=== PATIENT | female | born 1990 | race Caucasian/White ===

== ENCOUNTER 2021-01-30 16:36 | Inpatient (IN) ==
[2021-01-30] MEDS ORDERED: METOCLOPRAMIDE HCL 10 MG TABLET PO ONE (17:16)
[2021-01-30 17:42] LABS: Hematocrit (blood only) 38.2 % (37-47); Hemoglobin 13.1 g/dL (12.0-16.0); Mean Corpuscular Hemoglobin 30.1 pg (25-34); Mean Corpuscular Volume 87.8 fL (80-100); Mean Platelet Volume 10.1 fL (7.4-10.4); Platelet Count 247 K/uL (130-400); RDW Coefficient of Variation 13.2 % (11.5-14.5); RDW Standard Deviation 42.6 fL (36.4-46.3); Red Blood Count 4.35 M/uL (4.2-5.4); White Blood Count 11.25 K/uL (4.8-10.8)
[2021-01-30 18:06] LABS: Albumin Level 2.6 gm/dl (3.4-5.0); BUN Creatinine Ratio 11.4 (10-20); Calcium 8.8 mg/dl (8.5-10.1); Creatinine Clr Calc Pharmacy 199.9 ml/min; Est GFR (African American) 144.7 ml/min; Est GFR (Non-African American) 124.9 ml/min; Potassium 3.8 mmol/L (3.5-5.1)
[2021-01-30 18:07] LABS: Creatinine Urine Random 51.5 mg/dl; Protein Creatinine Ratio Urine 0.2 (0-0.2); Total Protein Urine Random 7.5 mg/dl (0-11.9)
[2021-01-30 18:08] LABS: Albumin Globulin Ratio 0.6 (0.9-2); Bilirubin,Total 0.6 mg/dl (0.2-1); Globulin 4.1 gm/dl (2.5-4.0); Total Protein 6.7 gm/dl (6.4-8.2)
[2021-01-30 18:18] LABS: Mean Corpuscular Hgb Conc 34.3 g/dL (32-36)
[2021-01-30] MEDS ORDERED: OXYTOCIN 30 UNITS/500 ML BAG IV PRN (18:33)
--- NOTE | 2021-01-30 19:38 | History & Physical Report ---
Date of Service January 30, 2021 Assessment & Plan (1) Gestational hypertension: Plan: 30 y/o at 37 2/7 with gHTN, now for IOL VSS, normal to mild range Fetus cat 1 Labor - will plan for samson bulb upon return of covid. Discussed suspected LGA, at current GA I think is reasonable to attempt an induction. Discussed risk of shoulder dystocia, abnormal labor course with higher EFW and AC, however unable to truly predict this. Pt verbalized understanding and pt amenable for induction GBS neg Epidural PRN Admission and Anticipated Discharge Date Admission Date: January 30, 2021 History of Present Illness Chief Complaint: WALKER Primary Care Provider: CARLOS Hinkle 30 y/o at 37 2/7 wga w/ MINA 02/18 by LMP who presents w/ c/o WALKER. Was seen for visit last week and found to have mild range BPs, labs were obtained an d wnl. She was seen the following day for BP check and was wnl. Today she called into triage line noting WALKER that had not improved with tylenol and was recommended for evaluation. On arrival, she still noted a very slight WALKER, 2/10. Denies vision change, CP, SOB, RUQ/epigastric pain. +FM; denies ctx, LOF, VB. BPs were normotensive to mild range, initial BP was severe however did not persist. Reglan was provided for WALKER relief which did improve it. Labs were again obtained and wnl, however pt did meet criteria for gHTN with mild range BPs >4 hours apart and so recommended for induction due to GA PNI: gHTN LGA - 36 wk EFW 96%, AC >98% Past EMERGENCY RESPONSE TECHNICIAN Hx: G1 2020 SAB G2 2020 SAB G3 current Menarche 12, q28d cycles Denies hx STIs Denies hx abnl pap, 2020 neg cotest Allergies Allergy/AdvReac Type Severity Reaction Status Date / Time No Known Allergies Allergy NONE Verified 01/30/21 16:51 Home Medications Medication Instructions Recorded Confirmed Type prenat.vits,efren,fbc-clri-iuphu 1 tab PO DAILY 01/01/20 01/30/21 History calcium carbonate [Tums] PO 11/17/20 01/27/21 History cetirizine [Zyrtec] PO 11/17/20 01/27/21 History Patient History Medical History Abnormal vaginal bleeding Acute sinusitis Allergic rhinitis Anxiety disorder Benign familial tremor Chemical Cough Encounter for control pills maintenance Encounter for cervical Pap smear with pelvic exam Hx of varicella Missed ab Surgical History [place] teeth removed Family History Mother Hypertension Father Hypertension Grandmother (Maternal) Heart disease Social History Smoking Status: Never smoker Second Hand Exposure: No; Hx Alcohol Use: No Hx Substance Use: No Preferred Language: Stateless Communication Ability: Effective Engineering Test Specialist Required: No Beliefs That Will Affect Care: None marital status: marital status details: Petar Terrazas (31) [phone] Current Living Situation: Spouse Current Living Situation Comment: lives with spouse,2 cats, spouse to change litter. current occupational status: employed current occupation: Teacher @ [employer] Other Information That Helps Us Care for You: No Feels Safe at Home: Yes Safety Concerns: Feels Safe At This Time Assistive Devices: None Physical Exam Constitutional: WD/WN, vitals as above Respiratory: normal respiratory effort; no respiratory distress and no labored breathing Psychiatric: A+Ox3, euthymic affect Genitourinary: OB Exam Abdomen: + vertex (confirmed by BSUS) and + estimated weight (8-9) Manual OB Exam: + cervical dilation 1 cm, + cervical effacement 50% and + station -2 OB Exam Monitor Tracing: + external FHT monitor used, + external uterine monitor used (irritability) and + category I (135/mod/+accel/-decel) Results & Data ([facility]) Vital Signs (Past 12 Hours) Vital Signs Temp Pulse Resp BP 01/30/21 18:59 92 H 137/88 01/30/21 18:57 98.4 F 18 01/30/21 18:33 90 145/84 H 01/30/21 18:17 102 H 125/90 01/30/21 18:04 96 H 121/87 01/30/21 17:48 116 H 135/91 01/30/21 17:32 98 H 128/88 01/30/21 17:20 97 H 131/84 01/30/21 17:03 90 139/92 01/30/21 16:47 98.8 F 112 H 20 163/79 H Laboratory Results OB Labs: Blood Type O Positive 07/21/20 Antibody Screen NEGATIVE 07/21/20 Hemoglobin 13.2 g/dL (12.0-16.0) 01/26/21 Hematocrit 38.7 % (37-47) 01/26/21 Mean Corpuscular Volume 88.6 fL (80-100) 01/26/21 Platelet Count 315 K/uL (130-400) 01/26/21 Rubella IgG Antibody Immune (Immune) 07/21/20 Rapid Plasma Reagin Nonreactive (Nonreactive) 07/21/20 Hepatitis B Surface Antigen Neg (Neg) 07/21/20 HIV (1&2) Ab and P24 Ag, 4th Gener Neg (Neg) 07/21/20 Glucose 1 Hour 50 gm Load 167 mg/dl (70-130) H 09/15/20 Maternal Serum Alpha Fetoprotein 46.6 ng/mL 09/15/20 OB Optional Labs: Chlamydia trachomatis RNA NOT DETECTED (NOT DETECTED) 07/21/20 Neisseria gonorrhoeae RNA NOT DETECTED (NOT DETECTED) 07/21/20 Thyroid Stimulating Hormone (TSH) 2.71 uIU/mL (0.30-4.50) 07/18/19 Alpha Fetoprotein Triple Screen SEE NOTE 09/15/20 Labs Reviewed: 07/2020 cfdna neg. 12/2019 cf/sma neg. 08/2020 neg Msafp 08/2020 neg 2hr gtt 11/2020 neg 2hr gtt Diagnostic Findings 01/26 EFW 96%, AC>98%, DVP 8.4, anterior plac Coding Level of Care Code None Diagnoses Gestational hypertension O13.9
--- NOTE | 2021-01-30 20:10 | Labor Progress Brief Note ---
Date of Service January 30, 2021 Assessment & Plan (1) Gestational hypertension: Plan: 30 y/o at 37 2/7 with gHTN, now for IOL VSS, normal to mild range Fetus cat 1 Labor - 35 cc samson bulb placed after obtaining verbal consent w/ risk including iatrogenic ROM, tolerated well. Will start pit up to [address] place gHTN - labs wnl, continue to monitor BPs, symptoms GBS neg Epidural PRN Admission and Anticipated Discharge Date Admission Date: January 30, 2021 Physical Exam Genitourinary: Manual OB Exam: + cervical dilation 1 cm, + cervical effacement 50% and + station -2 OB Exam Monitor Tracing: + external FHT monitor used, + external uterine monitor used (irritability) and + category I (130/mod/+accel/- decel) 35cc samson bulb placed Results & Data ([facility]) Vital Signs (Past 12 Hours) Vital Signs Temp Pulse Resp BP 01/30/21 18:59 92 H 137/88 01/30/21 18:57 98.4 F 18 01/30/21 18:33 90 145/84 H 01/30/21 18:17 102 H 125/90 01/30/21 18:04 96 H 121/87 01/30/21 17:48 116 H 135/91 01/30/21 17:32 98 H 128/88 01/30/21 17:20 97 H 131/84 01/30/21 17:03 90 139/92 01/30/21 16:47 98.8 F 112 H 20 163/79 H Coding Level of Care Code None Diagnoses Gestational hypertension O13.9
[2021-01-30] MEDS: OXYTOCIN 30 UNITS/500 ML BAG IV PRN ×2 (20:21→21:15)
[2021-01-30] MEDS: LACTATED RINGER'S 1,000 ML IV PRN (20:24)
[2021-01-31] MEDS: LACTATED RINGER'S 1,000 ML IV PRN ×4 (00:35→19:33)
--- NOTE | 2021-01-31 07:42 | Labor Progress Brief Note ---
Date of Service January 31, 2021 Subjective Samson bulb fell out around midnight, pit was titrated up to 20 but no change so pit break given. Pit restarted, starting to feel cramps again Assessment & Plan (1) Gestational hypertension: Plan: 30 y/o at 37 3/7 with gHTN, now for IOL VSS, normal to mild range Fetus cat 1 Labor - s/p samson, pit break. Pit restarted and currently at 4, continue induction gHTN - labs wnl, continue to monitor BPs, symptoms GBS neg Epidural PRN Admission and Anticipated Discharge Date Admission Date: January 30, 2021 Physical Exam Genitourinary: Manual OB Exam: + cervical dilation 4 cm, + cervical effacement 50% and + station high OB Exam Monitor Tracing: + external FHT monitor used, + external uterine monitor used (q7) and + category I (130/mod/+accel/-decel) Results & Data ([facility]) Vital Signs (Past 12 Hours) Vital Signs Temp Pulse Resp BP 01/31/21 07:34 100 H 132/78 01/31/21 07:06 98.6 F 104 H 20 150/77 H 01/31/21 06:33 97 H 131/79 01/31/21 06:32 18 01/31/21 05:33 98.2 F 16 01/31/21 05:14 89 18 147/82 H 01/31/21 04:21 84 18 131/73 01/31/21 03:16 79 109/60 01/31/21 02:21 98.4 F 18 01/31/21 02:12 83 135/82 01/31/21 01:13 81 116/79 01/31/21 00:13 83 135/80 01/30/21 23:17 98.4 F 18 01/30/21 23:14 83 18 121/78 01/30/21 22:13 90 18 128/80 01/30/21 20:58 86 127/88 01/30/21 20:56 87 131/87 01/30/21 20:44 88 122/84 01/30/21 20:27 72 108/64 01/30/21 20:24 57 L 82/47 L 01/30/21 20:23 60 84/61 L Coding Level of Care Code None Diagnoses Gestational hypertension O13.9
--- NOTE | 2021-01-31 09:34 | Anesthesiology Consultation ---
Date of Service January 31, 2021 Assessment & Plan Chart Review Chart Review: Acceptable Risk for Surgery, Patient NOT seen in Pre Admission Testing and Acceptable Risk for Labor Epidural Consults Requested none ASA ASA3 Proposed Anesthesia Anesthesia Type: Labor Epidural and CSE History Height/Weight Height: 5 ft 7 in Weight: 119.295 kg Allergies Allergy/AdvReac Type Severity Reaction Status Date / Time No Known Allergies Allergy NONE Verified 01/30/21 16:51 Medications Home Medications Medication Instructions Recorded Confirmed Last Taken prenat.vits,efren,bok-ctoe-fexcp 1 tab PO DAILY 01/01/20 01/30/21 01/29/21 20:00 calcium carbonate [Tums] PO 11/17/20 01/27/21 Unknown cetirizine [Zyrtec] PO 11/17/20 01/27/21 Unknown Active Medications Generic Name Dose Route Start Last Admin Trade Name Freq PRN Reason Stop Dose Admin Lactated Ringer's 1,000 mls @ 125 mls/hr 01/30/21 18:33 01/31/21 09:18 Lr IV 02/01/21 18:32 125 mls/hr .Q8H PRN Administration L&D Protocol Protocol Oxytocin 30 units in 500 mls @ 10 mls/hr 01/30/21 20:07 01/31/21 09:00 Pitocin IV 02/01/21 20:06 0.6 units/hr .Q24H PRN 10 mls/hr Labor Induction/Augmentation Titration Protocol 0.6 UNITS/HR Past Medical History Medical History Abnormal vaginal bleeding Acute sinusitis Allergic rhinitis Anxiety disorder Benign familial tremor Chemical Cough Encounter for control pills maintenance Encounter for cervical Pap smear with pelvic exam Hx of varicella Missed ab Exercise / Class Metabolic Activity II 4-5 Yardwork/Stairs/Walk up hill Past Family History Family History Mother Hypertension Father Hypertension Grandmother (Maternal) Heart disease Past Surgical History Surgical History [place] teeth removed Past Anesthesia History No Hx of Anesthesia Complications and No Family Hx of Anesthesia Complications History of PONV No Hx of PONV and No Hx of Motion Sickness Social History Smoking Status: Never smoker Hx Alcohol Use: No Hx Substance Use: No Physical Exam Vital Signs Last Vital Signs Temp 37.0 C 01/31/21 07:06 Pulse 95 H 01/31/21 09:03 Resp 20 01/31/21 07:06 BP 136/82 01/31/21 09:03 Testing Laboratory Results 01/30/21 17:31 01/30/21 17:31
[2021-01-31] MEDS ORDERED: fentaNYL citrate 100 MCG/2 ML VIAL ONE (14:01)
[2021-01-31] MEDS ORDERED: fentaNYL 2MCG/ML ROPIVACAINE 1.25MG/ML 100 ML BAG EPI ONE (14:01)
[2021-01-31] MEDS ORDERED: ePHEDrine sulfate 50 MG/ML AMP ONE (14:01)
[2021-01-31] MEDS ORDERED: SODIUM CHLORIDE 0.9% INJ 10 ML VIAL ONE (14:01)
[2021-01-31] MEDS ORDERED: BUPIVACAINE 0.25% 30 ML VIAL ONE (14:01)
[2021-01-31] MEDS ORDERED: PROMETHAZINE HCL 25 MG in SODIUM CHLORIDE 0.9% 50 ML IV PRN (14:41)
[2021-01-31] MEDS ORDERED: NALBUPHINE HCL INJ 10 MG/ML AMP IV PRN (14:41)
[2021-01-31] MEDS ORDERED: NALOXONE HCL 1 MG in SODIUM CHLORIDE 0.9% 1000ML 1,000 ML IV PRN (14:41)
[2021-01-31] MEDS ORDERED: diphenhydrAMINE 50 MG/ML VIAL IV PRN (14:41)
[2021-01-31] MEDS ORDERED: NALOXONE HCL 0.4 MG/1 ML VIAL/CARP IV PRN (14:41)
[2021-01-31] MEDS ORDERED: ePHEDrine sulfate 50 MG/ML AMP IV PRN (14:41)
[2021-01-31] MEDS: fentaNYL 2MCG/ML ROPIVACAINE 1.25MG/ML 100 ML BAG EPI PRN (22:04)
[2021-01-31] MEDS: OXYTOCIN 30 UNITS/500 ML BAG IV PRN (23:42)
[2021-02-01] MEDS: LACTATED RINGER'S 1,000 ML IV PRN ×2 (01:03→07:44)
[2021-02-01] MEDS: fentaNYL 2MCG/ML ROPIVACAINE 1.25MG/ML 100 ML BAG EPI PRN ×2 (05:00→10:36)
[2021-02-01] MEDS ORDERED: CALCIUM CARBONATE 500 MG CHEWABLE TAB PO PRN (05:00)
[2021-02-01] MEDS ORDERED: CITRIC ACID/SODIUM CITRATE 15 ML UDC PO SCH (06:00)
[2021-02-01] MEDS ORDERED: NURSING L&D Epidural Breakthrough Pain Update ONE (06:01)
--- NOTE | 2021-02-01 08:05 | Labor Progress Brief Note ---
Date of Service February 01, 2021 Subjective comfortable with redose of epidural. REceived sign out from Dr. Lafleur regarding this patient's course. Assessment & Plan (1) Gestational hypertension: Plan: continue current plan and hope to labor down. Fetus reassuring category one. Will recheck in one hour and then likely start pushing. Admission and Anticipated Discharge Date Admission Date: January 30, 2021 Physical Exam Physical Exam: cx--just a bit of cx on right/100/0 toco--q2-4min, pit at 38 efm--120s with mod variability, accels present, early with contraction Results & Data ([facility]) Vital Signs (Past 12 Hours) Vital Signs Temp Pulse Resp BP Pulse Ox 02/01/21 07:57 110 H 99 02/01/21 07:54 107 H 127/62 02/01/21 07:52 105 H 100 02/01/21 07:47 107 H 100 02/01/21 07:42 111 H 100 02/01/21 07:39 113 H 20 144/77 H 02/01/21 07:37 115 H 100 02/01/21 07:32 110 H 100 02/01/21 07:31 105 H 151/87 H 02/01/21 07:27 112 H 100 02/01/21 07:22 107 H 100 02/01/21 07:17 110 H 99 02/01/21 07:12 129 H 100 02/01/21 07:09 126 H 140/87 02/01/21 07:07 127 H 100 02/01/21 07:02 118 H 100 02/01/21 07:00 36.8 C 20 02/01/21 06:57 112 H 100 02/01/21 06:55 114 H 135/62 02/01/21 06:52 118 H 100 02/01/21 06:47 123 H 100 02/01/21 06:42 128 H 100 02/01/21 06:37 125 H 98 02/01/21 06:32 112 H 99 02/01/21 06:27 111 H 99 02/01/21 06:22 106 H 99 02/01/21 06:17 102 H 98 02/01/21 06:12 114 H 96 02/01/21 06:07 108 H 98 02/01/21 06:02 106 H 98 02/01/21 05:57 111 H 100 02/01/21 05:52 112 H 100 02/01/21 05:47 114 H 99 02/01/21 05:42 116 H 95 02/01/21 05:39 122 H 133/64 02/01/21 05:37 124 H 98 02/01/21 05:35 36.8 C 18 02/01/21 05:32 127 H 98 02/01/21 05:27 127 H 98 02/01/21 05:24 131 H 132/72 02/01/21 05:22 135 H 98 02/01/21 05:17 123 H 99 02/01/21 05:12 118 H 99 02/01/21 05:10 117 H 136/62 02/01/21 05:07 116 H 97 02/01/21 05:02 113 H 98 02/01/21 04:57 116 H 98 02/01/21 04:54 110 H 137/73 02/01/21 04:52 105 H 97 02/01/21 04:47 109 H 98 02/01/21 04:42 121 H 98 02/01/21 04:39 114 H 139/65 02/01/21 04:37 113 H 96 02/01/21 04:32 114 H 96 02/01/21 04:27 105 H 95 02/01/21 04:25 105 H 137/63 02/01/21 04:22 108 H 96 02/01/21 04:17 105 H 97 02/01/21 04:12 111 H 98 02/01/21 04:10 104 H 139/62 02/01/21 04:07 106 H 96 02/01/21 04:02 106 H 97 02/01/21 03:57 109 H 97 02/01/21 03:55 110 H 132/61 02/01/21 03:52 109 H 97 02/01/21 03:47 111 H 97 02/01/21 03:42 116 H 96 02/01/21 03:39 115 H 155/72 H 02/01/21 03:37 105 H 97 02/01/21 03:32 95 H 95 02/01/21 03:27 95 H 96 02/01/21 03:22 96 H 95 02/01/21 03:17 95 H 95 02/01/21 03:12 98 H 95 02/01/21 03:07 96 H 96 02/01/21 03:02 104 H 96 02/01/21 02:57 102 H 96 02/01/21 02:52 104 H 96 02/01/21 02:47 107 H 96 02/01/21 02:42 111 H 96 02/01/21 02:39 37.4 C 02/01/21 02:37 111 H 95 02/01/21 02:32 108 H 96 02/01/21 02:27 105 H 95 02/01/21 02:26 103 H 126/56 L 02/01/21 02:22 105 H 95 02/01/21 02:17 103 H 95 02/01/21 02:12 100 H 95 02/01/21 02:09 100 H 105/53 L 02/01/21 02:07 102 H 95 02/01/21 02:02 103 H 95 02/01/21 01:57 98 H 95 02/01/21 01:55 102 H 114/58 L 02/01/21 01:52 102 H 96 02/01/21 01:47 105 H 95 02/01/21 01:42 105 H 96 02/01/21 01:41 102 H 108/55 L 02/01/21 01:37 102 H 96 02/01/21 01:32 104 H 96 02/01/21 01:27 112 H 96 02/01/21 01:24 113 H 122/60 02/01/21 01:22 113 H 97 02/01/21 01:17 118 H 98 02/01/21 01:16 126 H 146/76 H 02/01/21 01:12 137 H 97 02/01/21 01:11 37.3 C 18 02/01/21 01:09 141 H 145/76 H 02/01/21 01:07 127 H 98 02/01/21 01:02 105 H 97 02/01/21 00:57 116 H 98 02/01/21 00:54 102 H 140/96 02/01/21 00:52 114 H 97 02/01/21 00:47 104 H 96 02/01/21 00:42 107 H 96 02/01/21 00:41 103 H 139/84 02/01/21 00:37 94 H 96 02/01/21 00:32 91 H 96 02/01/21 00:27 96 H 96 02/01/21 00:24 97 H 139/78 02/01/21 00:22 104 H 96 02/01/21 00:17 95 H 96 02/01/21 00:12 99 H 96 02/01/21 00:10 97 H 149/68 H 02/01/21 00:07 98 H 96 02/01/21 00:02 96 H 96 01/31/21 23:57 101 H 96 01/31/21 23:55 99 H 151/71 H 01/31/21 23:52 101 H 96 01/31/21 23:47 96 H 97 01/31/21 23:42 103 H 97 01/31/21 23:39 111 H 130/80 01/31/21 23:37 106 H 96 01/31/21 23:32 106 H 95 01/31/21 23:27 103 H 96 01/31/21 23:24 101 H 134/60 01/31/21 23:22 103 H 96 01/31/21 23:17 110 H 96 01/31/21 23:12 105 H 97 01/31/21 23:10 110 H 140/63 01/31/21 23:07 111 H 97 01/31/21 23:02 101 H 96 01/31/21 23:00 37.5 C 16 01/31/21 22:57 123 H 97 01/31/21 22:55 111 H 135/72 01/31/21 22:52 115 H 98 01/31/21 22:47 97 H 96 01/31/21 22:42 99 H 96 01/31/21 22:39 102 H 131/68 01/31/21 22:37 96 H 96 01/31/21 22:32 99 H 96 01/31/21 22:27 94 H 97 01/31/21 22:24 100 H 126/60 01/31/21 22:22 98 H 97 01/31/21 22:17 100 H 98 01/31/21 22:12 102 H 16 98 01/31/21 22:11 101 H 134/61 01/31/21 22:07 107 H 99 01/31/21 22:02 116 H 99 01/31/21 21:57 97 H 100 01/31/21 21:54 84 113/58 L 01/31/21 21:52 94 H 97 01/31/21 21:47 98 H 97 01/31/21 21:42 91 H 99 01/31/21 21:39 96 H 120/64 01/31/21 21:37 98 H 99 01/31/21 21:32 99 H 100 01/31/21 21:27 94 H 99 01/31/21 21:25 98 H 121/62 01/31/21 21:22 86 98 01/31/21 21:17 93 H 99 01/31/21 21:12 83 98 01/31/21 21:10 82 108/55 L 01/31/21 21:07 82 98 01/31/21 21:02 83 98 01/31/21 20:57 93 H 99 01/31/21 20:54 37.3 C 99 H 18 122/58 L 01/31/21 20:52 92 H 99 01/31/21 20:47 100 H 96 01/31/21 20:42 89 100 01/31/21 20:39 98 H 116/55 L 01/31/21 20:37 101 H 98 01/31/21 20:32 98 H 99 01/31/21 20:27 104 H 99 01/31/21 20:25 98 H 116/56 L 01/31/21 20:22 97 H 99 01/31/21 20:17 101 H 100 01/31/21 20:12 105 H 99 01/31/21 20:10 102 H 120/58 L 01/31/21 20:07 110 H 99 Coding Level of Care Code None Diagnoses Gestational hypertension O13.9
[2021-02-01] MEDS: ONDANSETRON INJ 2 MG/ML 2 ML VIAL IV PRN ×2 (09:08→13:35)
--- NOTE | 2021-02-01 11:05 | Labor Progress Brief Note ---
Date of Service February 01, 2021 Subjective Pushing but getting tired. Assessment & Plan (1) Gestational hypertension: Plan: Has definitely moved it . However, she is starting to get tired. she has room , so offered vacuum assist if she can get the baby down a little further. Fetus overall reassuring. Admission and Anticipated Discharge Date Admission Date: January 30, 2021 Physical Exam Physical Exam: cx--c/c/+2-3 toco--q3min, pit at 38 efm--140s with mod variability, accels to 150s, no decels Results & Data ([facility]) Vital Signs (Past 12 Hours) Vital Signs Temp Pulse Resp BP Pulse Ox 02/01/21 10:57 115 H 97 02/01/21 10:55 114 H 92 02/01/21 10:54 108 H 142/65 H 02/01/21 10:52 114 H 98 02/01/21 10:49 120 H 86 L 02/01/21 10:47 113 H 98 02/01/21 10:42 109 H 97 02/01/21 10:41 118 H 92 02/01/21 10:37 111 H 97 02/01/21 10:36 117 H 92 02/01/21 10:32 115 H 97 02/01/21 10:30 122 H 86 L 02/01/21 10:27 129 H 73 L 02/01/21 10:23 120 H 88 L 02/01/21 10:22 121 H 100 02/01/21 10:17 116 H 98 02/01/21 10:16 116 H 87 L 02/01/21 10:12 120 H 99 02/01/21 10:07 141 H 96 02/01/21 10:04 125 H 84 L 02/01/21 10:02 112 H 85 L 02/01/21 09:58 120 H 85 L 02/01/21 09:57 108 H 99 02/01/21 09:54 104 H 20 142/63 H 02/01/21 09:53 113 H 83 L 02/01/21 09:52 104 H 100 02/01/21 09:47 113 H 100 02/01/21 09:44 117 H 89 L 02/01/21 09:42 132 H 87 L 02/01/21 09:40 111 H 20 146/80 H 02/01/21 09:37 112 H 100 02/01/21 09:32 107 H 100 02/01/21 09:27 118 H 98 02/01/21 09:22 96 H 99 02/01/21 09:17 99 H 100 02/01/21 09:13 112 H 91 02/01/21 09:12 100 H 100 02/01/21 09:10 117 H 20 139/86 02/01/21 09:07 111 H 100 02/01/21 09:02 111 H 100 02/01/21 09:00 36.9 C 20 02/01/21 08:57 95 H 100 02/01/21 08:55 98 H 146/91 H 02/01/21 08:52 115 H 100 02/01/21 08:47 98 H 100 02/01/21 08:42 90 100 02/01/21 08:37 90 100 02/01/21 08:32 96 H 99 02/01/21 08:27 89 100 02/01/21 08:22 93 H 100 02/01/21 08:17 99 H 99 02/01/21 08:12 105 H 100 02/01/21 08:10 105 H 135/62 02/01/21 08:07 107 H 99 02/01/21 08:02 107 H 100 02/01/21 08:00 20 02/01/21 07:57 110 H 99 02/01/21 07:54 107 H 127/62 02/01/21 07:52 105 H 100 02/01/21 07:47 107 H 100 02/01/21 07:42 111 H 100 02/01/21 07:39 113 H 20 144/77 H 02/01/21 07:37 115 H 100 02/01/21 07:32 110 H 100 02/01/21 07:31 105 H 151/87 H 02/01/21 07:27 112 H 100 02/01/21 07:22 107 H 100 02/01/21 07:17 110 H 99 02/01/21 07:12 129 H 100 02/01/21 07:09 126 H 140/87 02/01/21 07:07 127 H 100 02/01/21 07:02 118 H 100 02/01/21 07:00 36.8 C 20 02/01/21 06:57 112 H 100 02/01/21 06:55 114 H 135/62 02/01/21 06:52 118 H 100 02/01/21 06:47 123 H 100 02/01/21 06:42 128 H 100 02/01/21 06:37 125 H 98 02/01/21 06:32 112 H 99 02/01/21 06:27 111 H 99 02/01/21 06:22 106 H 99 02/01/21 06:17 102 H 98 02/01/21 06:12 114 H 96 02/01/21 06:07 108 H 98 02/01/21 06:02 106 H 98 02/01/21 05:57 111 H 100 02/01/21 05:52 112 H 100 02/01/21 05:47 114 H 99 02/01/21 05:42 116 H 95 02/01/21 05:39 122 H 133/64 02/01/21 05:37 124 H 98 02/01/21 05:35 36.8 C 18 02/01/21 05:32 127 H 98 02/01/21 05:27 127 H 98 02/01/21 05:24 131 H 132/72 02/01/21 05:22 135 H 98 02/01/21 05:17 123 H 99 02/01/21 05:12 118 H 99 02/01/21 05:10 117 H 136/62 02/01/21 05:07 116 H 97 02/01/21 05:02 113 H 98 02/01/21 04:57 116 H 98 02/01/21 04:54 110 H 137/73 02/01/21 04:52 105 H 97 02/01/21 04:47 109 H 98 02/01/21 04:42 121 H 98 02/01/21 04:39 114 H 139/65 02/01/21 04:37 113 H 96 02/01/21 04:32 114 H 96 02/01/21 04:27 105 H 95 02/01/21 04:25 105 H 137/63 02/01/21 04:22 108 H 96 02/01/21 04:17 105 H 97 02/01/21 04:12 111 H 98 02/01/21 04:10 104 H 139/62 02/01/21 04:07 106 H 96 02/01/21 04:02 106 H 97 02/01/21 03:57 109 H 97 02/01/21 03:55 110 H 132/61 02/01/21 03:52 109 H 97 02/01/21 03:47 111 H 97 02/01/21 03:42 116 H 96 02/01/21 03:39 115 H 155/72 H 02/01/21 03:37 105 H 97 02/01/21 03:32 95 H 95 02/01/21 03:27 95 H 96 02/01/21 03:22 96 H 95 02/01/21 03:17 95 H 95 02/01/21 03:12 98 H 95 02/01/21 03:07 96 H 96 02/01/21 03:02 104 H 96 02/01/21 02:57 102 H 96 02/01/21 02:52 104 H 96 02/01/21 02:47 107 H 96 02/01/21 02:42 111 H 96 02/01/21 02:39 37.4 C 02/01/21 02:37 111 H 95 02/01/21 02:32 108 H 96 02/01/21 02:27 105 H 95 02/01/21 02:26 103 H 126/56 L 02/01/21 02:22 105 H 95 02/01/21 02:17 103 H 95 02/01/21 02:12 100 H 95 02/01/21 02:09 100 H 105/53 L 02/01/21 02:07 102 H 95 02/01/21 02:02 103 H 95 02/01/21 01:57 98 H 95 02/01/21 01:55 102 H 114/58 L 02/01/21 01:52 102 H 96 02/01/21 01:47 105 H 95 02/01/21 01:42 105 H 96 02/01/21 01:41 102 H 108/55 L 02/01/21 01:37 102 H 96 02/01/21 01:32 104 H 96 02/01/21 01:27 112 H 96 02/01/21 01:24 113 H 122/60 02/01/21 01:22 113 H 97 02/01/21 01:17 118 H 98 02/01/21 01:16 126 H 146/76 H 02/01/21 01:12 137 H 97 02/01/21 01:11 37.3 C 18 02/01/21 01:09 141 H 145/76 H 02/01/21 01:07 127 H 98 02/01/21 01:02 105 H 97 02/01/21 00:57 116 H 98 02/01/21 00:54 102 H 140/96 02/01/21 00:52 114 H 97 02/01/21 00:47 104 H 96 02/01/21 00:42 107 H 96 02/01/21 00:41 103 H 139/84 02/01/21 00:37 94 H 96 02/01/21 00:32 91 H 96 02/01/21 00:27 96 H 96 02/01/21 00:24 97 H 139/78 02/01/21 00:22 104 H 96 02/01/21 00:17 95 H 96 02/01/21 00:12 99 H 96 02/01/21 00:10 97 H 149/68 H 02/01/21 00:07 98 H 96 02/01/21 00:02 96 H 96 01/31/21 23:57 101 H 96 01/31/21 23:55 99 H 151/71 H 01/31/21 23:52 101 H 96 01/31/21 23:47 96 H 97 01/31/21 23:42 103 H 97 01/31/21 23:39 111 H 130/80 01/31/21 23:37 106 H 96 01/31/21 23:32 106 H 95 01/31/21 23:27 103 H 96 01/31/21 23:24 101 H 134/60 01/31/21 23:22 103 H 96 01/31/21 23:17 110 H 96 01/31/21 23:12 105 H 97 01/31/21 23:10 110 H 140/63 01/31/21 23:07 111 H 97 Coding Level of Care Code None Diagnoses Gestational hypertension O13.9
--- NOTE | 2021-02-01 11:38 | Communication Note ---
Date of Service: February 01, 2021 Patient exhausted. Has pushed vertex to +2-3. Offered vacuum assist and they consent. Risks discussed including failure, injury to scalp. Was able to apply vacuum. Unfortunately could not get good application of vacuum. Had three pop offs. Vertex did move a bit but maternal effort poor. Decided to proceed with c/s delivery. Consent reviewed and signed. FHT 140s with good variability.
[2021-02-01] MEDS ORDERED: CITRIC ACID/SODIUM CITRATE 15 ML UDC ONE (11:41)
[2021-02-01] MEDS ORDERED: LACTATED RINGER'S 1,000 ML IV SCH ×2 (11:45→15:33)
[2021-02-01] MEDS ORDERED: MoRPHine SULFATE PF 1 MG/ML 10 ML AMP/VIAL ONE (11:47)
[2021-02-01] MEDS ORDERED: ONDANSETRON INJ 2 MG/ML 2 ML VIAL ONE (12:19)
[2021-02-01] MEDS ORDERED: OXYTOCIN 10 UNITS/ML VIAL ONE ×3 (12:19→12:34)
[2021-02-01] MEDS ORDERED: METOCLOPRAMIDE HCL INJ 5 MG/ML 2 ML VIAL ONE (12:19)
[2021-02-01] MEDS ORDERED: PHENYLEPHRINE 100MCG/ML 5ML SYR ONE (12:19)
[2021-02-01] MEDS ORDERED: PROPOFOL IV EMULSION 10 MG/ML 20 ML VIAL IV ONE (12:22)
[2021-02-01] MEDS ORDERED: LIDOCAINE 2% MPF LOCAL 5 ML VIAL INFIL ONE (12:22)
[2021-02-01] MEDS ORDERED: diphenhydrAMINE 50 MG/ML VIAL IV PRN (12:26)
[2021-02-01] MEDS ORDERED: NALBUPHINE HCL INJ 10 MG/ML AMP IV PRN (12:26)
[2021-02-01] MEDS ORDERED: NALOXONE HCL 0.08 MG in SYRINGE 1.8 ML IV PRN (12:26)
[2021-02-01] MEDS ORDERED: NALOXONE HCL 1 MG in SODIUM CHLORIDE 0.9% 1000ML 1,000 ML IV PRN (12:26)
[2021-02-01] MEDS ORDERED: NALOXONE HCL 0.4 MG/1 ML VIAL/CARP IV PRN (12:26)
[2021-02-01] MEDS ORDERED: LACTATED RINGER'S 500 ML IV PRN (12:26)
[2021-02-01] MEDS ORDERED: PROMETHAZINE HCL 12.5 MG in SODIUM CHLORIDE 0.9% 50 ML IV PRN (12:26)
[2021-02-01] MEDS ORDERED: ONDANSETRON INJ 2 MG/ML 2 ML VIAL IV PRN (12:26)
[2021-02-01] MEDS ORDERED: KETOROLAC 30 MG/ML VIAL IV PRN (12:26)
[2021-02-01] MEDS ORDERED: MEPERIDINE HCL 25 MG/ML CARP/VIAL IV PRN (12:26)
[2021-02-01] MEDS ORDERED: ePHEDrine sulfate 50 MG/ML AMP IV PRN (12:26)
[2021-02-01] MEDS ORDERED: MoRPHine SULFATE PF 1 MG/ML 10 ML AMP/VIAL EPI ONE (12:26)
[2021-02-01] MEDS ORDERED: NO NARCOTICS OR SEDATIVES SCH (12:30)
[2021-02-01] MEDS ORDERED: SODIUM CHLORIDE 0.9% 1000ML 1,000 ML IV SCH (12:30)
[2021-02-01] MEDS ORDERED: DC INTRASPINAL MORPHINE SCH (12:30)
--- NOTE | 2021-02-01 12:51 | Operative Report ---
PG Post Operative Report Pre & Post Diagnosis Operation Date: 02/01/21 11:50 Pre-Op Diagnosis: failure to descend failed vacuum Post-Op Diagnosis: same I identified the patient and participated in the time-out.: Yes Procedure Operation Date: 02/01/21 11:50 Actual Procedures p Primary low trnsverse Section in LD(Not Applicable) - Nidhi monique MD, FACOG Surgeon Nidhi Samayoa MD, FACOG Purchasing Administrative Assistant Ming Fonseca RN, Ming Carter, MS3 Estimated Blood Loss 600 Findings Consistent with Post-Op Diagnosis uterus and tubes and ovaries normal. Fetus wedged into the pelvis, lop. Apgars pending Fluids 1500cc Specimens cord blood and gases Drains samson Anesthesia Type L&D Only Epidural Exists Complications none Disposition Accompanied Patient To Recovery: Yes Disposition: L&D Indications [id number] G1 with failed vacuum and proceeding with maternal exhaustion and FTD Description of Procedure The patient was taken to the operating room where she was identified verbally and by bracelet. She was seated on the operating table where her indwelling epidural was dosed. She was then placed in the supine position with a leftward tilt. A Samson catheter had been placed sterilely. the patient was prepped and draped in a normal standard fashion. the anesthetic was tested and found to be adequate. A time-out was held, identifying correct patient, procedure, positioning and preoperative antibiotics. There were no concerns. A Pfannenstiel skin incision was made with a knife and taken down to the underlying layer of fascia with the knife and Bovie electrocautery. Bleeding was attended to with the Bovie. The fascia was incised in the midline with the knife and taken out laterally with scissors. The superior edge of the fascial incision was grasped, elevated and the underlying layer of rectus muscle was taken off bluntly and with scissors. In a similar fashion, the inferior edge of the fascial incision was grasped, elevated and the underlying layer of rectus muscle was taken off bluntly and with scissors. The muscles were bluntly in the midline. The peritoneum was entered bluntly. The incision was then stretched. The bladder blade was placed. The vesicouterine peritoneum was identified, entered with scissors and taken out laterally with scissors. The bladder flap was created digitally A hysterotomy incision was scored with a knife and the incision was stretched superiorly and inferiorly with the serging machine operator's fingers. The operators hand was placed into the incision and the head was partially delivered, required vacuum assist with one pull to deliver the rest of the head. No nuchal cord. The nose and mouth were bulb suctioned. the rest of the was then delivered without difficulty. The nose and mouth were again bulb suctioned. The cord was clamped and cut and the was then handed off to the awaiting taxi driver supervisor for drying and attention. Cord blood and segment were obtained. The placenta was Manually extracted. The uterus was exteriorized and cleared of all clot and debris with moistened laparotomy sponges. The hysterotomy incision was repaired in two layers, the first in a running locked layer, the second in an imbricating layer. Hemostasis was noted to be good. Posterior cul-de-sac was irrigated and cleared of all clot and debris. The hysterotomy incision was again inspected and found to be hemostatic. the uterus was reinteriorized. Hysterotomy incision was again inspected and found to be hemostatic. Rectus muscles were reapproximated with several interrupted stitches of 0 Vicryl. The fascia was then reapproximated with 0 Vicryl starting at the edges and meeting in the midline. The subcuticular tissues were copiously irrigated and bleeding was attended to with cautery. The skin was then closed with 4-0 Vicryl in a subcuticular fashion. All sponge, lap and needle counts were correct x 2. the patient was taken to recovery in stable condition. I attest to the content of the Intraoperative Record and any orders documented therein. Any exceptions are noted below.
[2021-02-01 13:25] LABS: Base Excess Cord Arterial Bld -9.3 mEq/L (-9-1.8); CO2 Cord Arterial Blood 51 mmHg (39.1-73.5); HCO3 Cord Arterial Blood 19 mmol/L (19.7-28.5); PO2 Cord Arterial Blood 10 mmHg (4.1-31.7)
[2021-02-01 13:29] LABS: Base Excess Cord Venous Blood -9.4 mEq/L (-7.7-1.9); Cord Venous Blood HCO3 17 mmol/L (18.4-26.8); Cord Venous Blood PCO2 38 mmHg (30.4-57.2); Cord Venous Blood PO2 20 mmHg (14.1-43.3); Cord Venous Blood pH 7.27 (7.20-7.44); Oxygen Sat Cord Arterial Blood < 60.0 % (<60)
[2021-02-01 13:31] LABS: O2 Saturation Cord Venous Bld < 60.0 % (<68)
[2021-02-01] MEDS ORDERED: CARBOPROST TROMETHAMINE 250 MCG/ML AMPUL ONE (13:37)
--- NOTE | 2021-02-01 15:04 | Anesthesiology Progress Note ---
Date of Service February 01, 2021 Anesthesia Post Procedure Vital Signs Vital Signs: Temp Pulse Resp BP Pulse Ox 02/01/21 15:02 100 H 127/56 L 02/01/21 15:00 98 H 98 02/01/21 14:55 100 H 98 02/01/21 14:52 99 H 138/66 02/01/21 14:50 100 H 96 02/01/21 14:45 95 H 98 02/01/21 14:42 92 H 134/70 02/01/21 14:40 90 99 02/01/21 14:35 92 H 99 02/01/21 14:32 97 H 124/71 02/01/21 14:30 92 H 98 02/01/21 14:25 93 H 99 02/01/21 14:20 90 99 02/01/21 14:15 96 H 99 02/01/21 14:13 89 147/66 H 02/01/21 14:10 87 99 02/01/21 14:05 85 20 99 02/01/21 14:02 91 H 120/78 02/01/21 14:00 90 99 02/01/21 13:55 90 20 99 02/01/21 13:52 86 116/69 02/01/21 13:50 92 H 99 02/01/21 13:45 92 H 20 99 02/01/21 13:42 94 H 114/62 02/01/21 13:40 91 H 98 02/01/21 13:35 94 H 20 95 02/01/21 13:32 89 119/59 L 02/01/21 13:30 91 H 99 02/01/21 13:25 94 H 20 98 02/01/21 13:22 97 H 115/58 L 02/01/21 13:20 100 H 98 02/01/21 13:15 97 H 20 97 02/01/21 13:12 148 H 107/53 L 02/01/21 13:11 101 H 92 02/01/21 13:10 99 H 96 02/01/21 13:05 37.2 C 103 H 20 94 02/01/21 13:01 102 H 116/51 L 02/01/21 12:59 115 H 83 L 02/01/21 11:48 112 H 90 02/01/21 11:42 111 H 92 02/01/21 11:40 97 H 173/101 H 02/01/21 11:39 108 H 91 02/01/21 11:37 111 H 98 02/01/21 11:32 110 H 97 02/01/21 11:27 137 H 88 L 02/01/21 11:24 112 H 182/84 H 02/01/21 11:22 138 H 95 02/01/21 11:17 116 H 99 02/01/21 11:16 122 H 91 02/01/21 11:12 109 H 98 02/01/21 11:10 103 H 143/71 H 02/01/21 11:07 109 H 97 02/01/21 11:02 117 H 78 L 02/01/21 10:57 37.0 C 115 H 22 97 02/01/21 10:55 114 H 92 02/01/21 10:54 108 H 142/65 H 02/01/21 10:52 114 H 98 02/01/21 10:49 120 H 86 L 02/01/21 10:47 113 H 98 02/01/21 10:42 109 H 97 02/01/21 10:41 118 H 92 02/01/21 10:37 111 H 97 02/01/21 10:36 117 H 92 02/01/21 10:32 115 H 97 02/01/21 10:30 122 H 86 L 02/01/21 10:27 129 H 73 L 02/01/21 10:23 120 H 88 L 02/01/21 10:22 121 H 100 02/01/21 10:17 116 H 98 02/01/21 10:16 116 H 87 L 02/01/21 10:12 120 H 99 02/01/21 10:07 141 H 96 02/01/21 10:04 125 H 84 L 02/01/21 10:02 112 H 85 L 02/01/21 09:58 120 H 85 L 02/01/21 09:57 108 H 99 02/01/21 09:54 104 H 20 142/63 H 02/01/21 09:53 113 H 83 L 02/01/21 09:52 104 H 100 02/01/21 09:47 113 H 100 02/01/21 09:44 117 H 89 L 02/01/21 09:42 132 H 87 L 02/01/21 09:40 111 H 20 146/80 H 02/01/21 09:37 112 H 100 02/01/21 09:32 107 H 100 02/01/21 09:27 118 H 98 02/01/21 09:22 96 H 99 02/01/21 09:17 99 H 100 02/01/21 09:13 112 H 91 02/01/21 09:12 100 H 100 02/01/21 09:10 117 H 20 139/86 02/01/21 09:07 111 H 100 02/01/21 09:02 111 H 100 02/01/21 09:00 36.9 C 20 02/01/21 08:57 95 H 100 02/01/21 08:55 98 H 146/91 H 02/01/21 08:52 115 H 100 02/01/21 08:47 98 H 100 02/01/21 08:42 90 100 02/01/21 08:37 90 100 02/01/21 08:32 96 H 99 02/01/21 08:27 89 100 02/01/21 08:22 93 H 100 02/01/21 08:17 99 H 99 02/01/21 08:12 105 H 100 02/01/21 08:10 105 H 135/62 02/01/21 08:07 107 H 99 02/01/21 08:02 107 H 100 02/01/21 08:00 20 02/01/21 07:57 110 H 99 02/01/21 07:54 107 H 127/62 02/01/21 07:52 105 H 100 02/01/21 07:47 107 H 100 02/01/21 07:42 111 H 100 02/01/21 07:39 113 H 20 144/77 H 02/01/21 07:37 115 H 100 02/01/21 07:32 110 H 100 02/01/21 07:31 105 H 151/87 H 02/01/21 07:27 112 H 100 02/01/21 07:22 107 H 100 02/01/21 07:17 110 H 99 02/01/21 07:12 129 H 100 02/01/21 07:09 126 H 140/87 02/01/21 07:07 127 H 100 02/01/21 07:02 118 H 100 02/01/21 07:00 36.8 C 20 02/01/21 06:57 112 H 100 09/07/21 06:55 114 H 135/62 02/01/21 06:52 118 H 100 02/01/21 06:47 123 H 100 02/01/21 06:42 128 H 100 02/01/21 06:37 125 H 98 02/01/21 06:32 112 H 99 02/01/21 06:27 111 H 99 02/01/21 06:22 106 H 99 02/01/21 06:17 102 H 98 02/01/21 06:12 114 H 96 02/01/21 06:07 108 H 98 02/01/21 06:02 106 H 98 02/01/21 05:57 111 H 100 02/01/21 05:52 112 H 100 02/01/21 05:47 114 H 99 02/01/21 05:42 116 H 95 02/01/21 05:39 122 H 133/64 02/01/21 05:37 124 H 98 02/01/21 05:35 36.8 C 18 02/01/21 05:32 127 H 98 02/01/21 05:27 127 H 98 02/01/21 05:24 131 H 132/72 02/01/21 05:22 135 H 98 02/01/21 05:17 123 H 99 02/01/21 05:12 118 H 99 02/01/21 05:10 117 H 136/62 02/01/21 05:07 116 H 97 02/01/21 05:02 113 H 98 02/01/21 04:57 116 H 98 02/01/21 04:54 110 H 137/73 02/01/21 04:52 105 H 97 02/01/21 04:47 109 H 98 02/01/21 04:42 121 H 98 02/01/21 04:39 114 H 139/65 02/01/21 04:37 113 H 96 02/01/21 04:32 114 H 96 02/01/21 04:27 105 H 95 02/01/21 04:25 105 H 137/63 02/01/21 04:22 108 H 96 02/01/21 04:17 105 H 97 02/01/21 04:12 111 H 98 02/01/21 04:10 104 H 139/62 02/01/21 04:07 106 H 96 02/01/21 04:02 106 H 97 02/01/21 03:57 109 H 97 02/01/21 03:55 110 H 132/61 02/01/21 03:52 109 H 97 02/01/21 03:47 111 H 97 02/01/21 03:42 116 H 96 02/01/21 03:39 115 H 155/72 H 02/01/21 03:37 105 H 97 02/01/21 03:32 95 H 95 02/01/21 03:27 95 H 96 02/01/21 03:22 96 H 95 02/01/21 03:17 95 H 95 02/01/21 03:12 98 H 95 02/01/21 03:07 96 H 96 02/01/21 03:02 104 H 96 02/01/21 02:57 102 H 96 02/01/21 02:52 104 H 96 02/01/21 02:47 107 H 96 02/01/21 02:42 111 H 96 02/01/21 02:39 37.4 C 02/01/21 02:37 111 H 95 02/01/21 02:32 108 H 96 02/01/21 02:27 105 H 95 02/01/21 02:26 103 H 126/56 L 02/01/21 02:22 105 H 95 02/01/21 02:17 103 H 95 02/01/21 02:12 100 H 95 02/01/21 02:09 100 H 105/53 L 02/01/21 02:07 102 H 95 02/01/21 02:02 103 H 95 02/01/21 01:57 98 H 95 02/01/21 01:55 102 H 114/58 L 02/01/21 01:52 102 H 96 02/01/21 01:47 105 H 95 02/01/21 01:42 105 H 96 02/01/21 01:41 102 H 108/55 L 02/01/21 01:37 102 H 96 02/01/21 01:32 104 H 96 02/01/21 01:27 112 H 96 02/01/21 01:24 113 H 122/60 02/01/21 01:22 113 H 97 02/01/21 01:17 118 H 98 02/01/21 01:16 126 H 146/76 H 02/01/21 01:12 137 H 97 02/01/21 01:11 37.3 C 18 02/01/21 01:09 141 H 145/76 H 02/01/21 01:07 127 H 98 02/01/21 01:02 105 H 97 02/01/21 00:57 116 H 98 02/01/21 00:54 102 H 140/96 02/01/21 00:52 114 H 97 02/01/21 00:47 104 H 96 02/01/21 00:42 107 H 96 02/01/21 00:41 103 H 139/84 02/01/21 00:37 94 H 96 02/01/21 00:32 91 H 96 02/01/21 00:27 96 H 96 02/01/21 00:24 97 H 139/78 02/01/21 00:22 104 H 96 02/01/21 00:17 95 H 96 02/01/21 00:12 99 H 96 02/01/21 00:10 97 H 149/68 H 02/01/21 00:07 98 H 96 02/01/21 00:02 96 H 96 01/31/21 23:57 101 H 96 01/31/21 23:55 99 H 151/71 H 01/31/21 23:52 101 H 96 01/31/21 23:47 96 H 97 01/31/21 23:42 103 H 97 01/31/21 23:39 111 H 130/80 01/31/21 23:37 106 H 96 01/31/21 23:32 106 H 95 01/31/21 23:27 103 H 96 01/31/21 23:24 101 H 134/60 01/31/21 23:22 103 H 96 01/31/21 23:17 110 H 96 01/31/21 23:12 105 H 97 01/31/21 23:10 110 H 140/63 01/31/21 23:07 111 H 97 01/31/21 23:02 101 H 96 01/31/21 23:00 37.5 C 16 01/31/21 22:57 123 H 97 01/31/21 22:55 111 H 135/72 01/31/21 22:52 115 H 98 01/31/21 22:47 97 H 96 01/31/21 22:42 99 H 96 01/31/21 22:39 102 H 131/68 09/06/21 22:37 96 H 96 01/31/21 22:32 99 H 96 01/31/21 22:27 94 H 97 01/31/21 22:24 100 H 126/60 01/31/21 22:22 98 H 97 01/31/21 22:17 100 H 98 01/31/21 22:12 102 H 16 98 01/31/21 22:11 101 H 134/61 01/31/21 22:07 107 H 99 01/31/21 22:02 116 H 99 01/31/21 21:57 97 H 100 01/31/21 21:54 84 113/58 L 01/31/21 21:52 94 H 97 01/31/21 21:47 98 H 97 01/31/21 21:42 91 H 99 01/31/21 21:39 96 H 120/64 01/31/21 21:37 98 H 99 01/31/21 21:32 99 H 100 01/31/21 21:27 94 H 99 01/31/21 21:25 98 H 121/62 01/31/21 21:22 86 98 01/31/21 21:17 93 H 99 01/31/21 21:12 83 98 01/31/21 21:10 82 108/55 L 01/31/21 21:07 82 98 01/31/21 21:02 83 98 01/31/21 20:57 93 H 99 01/31/21 20:54 37.3 C 99 H 18 122/58 L 01/31/21 20:52 92 H 99 01/31/21 20:47 100 H 96 01/31/21 20:42 89 100 01/31/21 20:39 98 H 116/55 L 01/31/21 20:37 101 H 98 01/31/21 20:32 98 H 99 01/31/21 20:27 104 H 99 01/31/21 20:25 98 H 116/56 L 01/31/21 20:22 97 H 99 01/31/21 20:17 101 H 100 01/31/21 20:12 105 H 99 01/31/21 20:10 102 H 120/58 L 01/31/21 20:07 110 H 99 01/31/21 20:02 91 H 99 01/31/21 19:57 95 H 100 01/31/21 19:54 96 H 97/50 L 01/31/21 19:52 95 H 100 01/31/21 19:47 93 H 100 01/31/21 19:42 96 H 99 01/31/21 19:40 95 H 107/51 L 01/31/21 19:37 102 H 99 01/31/21 19:32 103 H 100 01/31/21 19:27 101 H 99 01/31/21 19:24 104 H 141/73 H 01/31/21 19:22 110 H 100 01/31/21 19:17 99 H 99 01/31/21 19:12 97 H 100 01/31/21 19:10 103 H 137/68 01/31/21 19:07 119 H 100 01/31/21 19:02 105 H 100 01/31/21 19:01 37.5 C 18 01/31/21 18:57 119 H 99 01/31/21 18:55 107 H 134/74 01/31/21 18:52 114 H 100 01/31/21 18:47 134 H 100 01/31/21 18:42 95 H 100 01/31/21 18:39 88 141/77 H 01/31/21 18:37 85 100 01/31/21 18:32 91 H 99 01/31/21 18:27 89 100 01/31/21 18:25 82 20 141/77 H 01/31/21 18:22 91 H 100 01/31/21 18:17 99 H 99 01/31/21 18:12 85 100 01/31/21 18:10 36.8 C 95 H 20 138/79 01/31/21 18:07 99 H 99 01/31/21 18:02 88 100 01/31/21 17:57 90 100 01/31/21 17:54 87 126/84 01/31/21 17:52 88 100 01/31/21 17:47 94 H 100 01/31/21 17:42 91 H 100 01/31/21 17:39 90 134/82 01/31/21 17:37 96 H 99 01/31/21 17:32 98 H 99 01/31/21 17:27 81 98 01/31/21 17:24 83 128/67 01/31/21 17:22 84 99 01/31/21 17:17 92 H 99 01/31/21 17:12 88 100 01/31/21 17:09 80 20 133/70 01/31/21 17:07 75 100 01/31/21 17:02 81 100 01/31/21 16:57 88 99 01/31/21 16:55 90 133/75 01/31/21 16:52 86 100 01/31/21 16:47 99 H 99 01/31/21 16:42 98 H 100 01/31/21 16:40 99 H 121/77 01/31/21 16:37 99 H 100 01/31/21 16:32 115 H 100 01/31/21 16:27 90 99 01/31/21 16:25 91 H 118/75 01/31/21 16:22 96 H 99 01/31/21 16:17 102 H 99 01/31/21 16:12 93 H 99 01/31/21 16:10 36.8 C 96 H 18 120/70 01/31/21 16:07 93 H 100 01/31/21 16:02 112 H 100 01/31/21 16:00 108 H 92 01/31/21 15:57 92 H 100 01/31/21 15:55 93 H 133/63 01/31/21 15:52 93 H 100 01/31/21 15:47 84 100 01/31/21 15:42 86 100 01/31/21 15:40 90 129/69 01/31/21 15:37 86 100 01/31/21 15:32 84 100 01/31/21 15:27 85 100 01/31/21 15:26 90 134/69 01/31/21 15:22 97 H 100 01/31/21 15:17 92 H 100 01/31/21 15:12 83 100 01/31/21 15:09 85 20 129/73 01/31/21 15:07 85 100 Pain Intensity Bilateral Head: Pain Intensity: 2 Transfer of Care Handoff Completed per policy Notes Mental Status: alert / awake / arousable Patient Amnestic to Procedure: Yes Nausea / Vomiting: adequately controlled Pain: adequately controlled Airway Patency, RR, SpO2: stable & adequate BP & HR: stable & adequate Hydration State: stable & adequate Anesthetic Complications: no major complications apparent
[2021-02-01] MEDS ORDERED: SUPERCREAM 0.870% 15 GM JAR EXT PRN (15:33)
[2021-02-01] MEDS ORDERED: DIPHTHERIA/TETANUS/PERTUSSIS 0.5 ML SYR/VIAL IM ONE (15:33)
[2021-02-01] MEDS ORDERED: HYDROCORTISONE ACETATE 25 MG SUPP PR PRN (15:33)
[2021-02-01] MEDS ORDERED: SENNA 8.6 MG TAB PO PRN (15:33)
[2021-02-01] MEDS ORDERED: BENZOCAINE 20% AER SPR 82.5 GM CAN EXT PRN (15:33)
[2021-02-01] MEDS ORDERED: MAGNESIUM HYDROXIDE SUSP 30 ML UDC PO PRN (15:33)
[2021-02-01] MEDS: OXYTOCIN 20 UNITS in LACTATED RINGER'S 1,000 ML IV SCH (15:46)
[2021-02-01] MEDS: DOCUSATE SODIUM 100 MG CAP PO SCH (20:42)
[2021-02-01] MEDS: SIMETHICONE 80 MG CHEW PO SCH (20:42)
[2021-02-02] MEDS: OXYTOCIN 20 UNITS in LACTATED RINGER'S 1,000 ML IV SCH (00:50)
--- NOTE | 2021-02-02 06:07 | Obstetrical Progress Note ---
Date of Service <Sarahi Webber MD - Last Filed: 02/02/21 07:19> February 02, 2021 Assessment & Plan <Sarahi Webber MD - Last Filed: 02/02/21 07:19> (1) Encounter for care and examination after delivery: 30 yo now POD1 from at 37wk4d for failed vacuum delivery and failure of descent -Continue routine care, anticipated d/c 02/04 -Vitals reviewed- HDS, afebrile -Blood type O+, GBS-, Rubella immune -Encourage ambulation, advance to regular diet -Remove Samson today -Pain control with ibuprofen, oxycodone PRN -Encourage -Hgb 12.1 today, asymptomatic -F/u in 6 weeks with OB <Nidhi Samayoa MD, FACOG - Last Filed: 02/02/21 07:22> (1) Encounter for care and examination after delivery: Subjective <Sarahi Webber MD - Last Filed: 02/02/21 07:19> Ambulation: limited ambulation Voiding: samson catheter in place Passing Gas:: Yes Diet Tolerance:: regular diet Lochia:: Small Feeding Type:: breast feeding Current Pain Level(1-10): 0 Pt and baby doing well, no acute events or complaints. Has not passed BM yet. Pain well controlled with medication. Review of Systems Denies fevers/chills. Denies dyspnea, cough. Denies chest pain. Denies breast pain or discharge. Denies dysuria. Denies headache. Denies back pain. Physical Exam <Sarahi Webber MD - Last Filed: 02/02/21 07:19> General: Alert, oriented, no acute distress Cardiac: Regular rate and rhythm, normal S1, S2. No murmurs appreciated. Respiratory: Clear to auscultation b/l with good air flow entry, symmetric chest rise and fall. No wheezes or crackles. No increased work of breathing or accessory muscle use Abdomen: Soft, nontender, nondistended. Fundus firm and palpable at 2 cm below umbilicus. Surgical incision clean, dry and intact without erythema, warmth or drainage. Bowel sounds appreciated. No guarding or rebound. Skin: No rashes or lesions Extremities: Warm, dry, well-perfused with capillary refill <2s b/l. No lower extremity edema, erythema or swelling. Negative Tonya's sign b/l. Results & Data ([facility]) <Sarahi Webber MD - Last Filed: 02/02/21 07:19> Vital Signs (Past 12 Hours) Vital Signs Temp Pulse Resp BP Pulse Ox 02/02/21 03:10 16 92 02/02/21 02:25 18 94 02/02/21 01:20 16 92 02/02/21 00:20 37.2 C 88 18 117/74 96 02/01/21 23:30 16 94 02/01/21 22:25 18 96 02/01/21 21:45 16 94 02/01/21 20:20 36.9 C 95 H 16 133/78 96 02/01/21 19:20 16 96 02/01/21 18:15 18 97 <Nidhi Samayoa MD, FACOG - Last Filed: 02/02/21 07:22> Co-Signing Physician Notes Resident Physician Supervision Note: I interviewed and examined the patient. Discussed with Dr. Mayberry and agree with findings and plan as documented in the note. Any exceptions or clarifications are listed here: Doing well. Routine care. Samson out and void. Encourage ambulation. Pain well controlled. Documented By: Nidhi Samayoa MD, FACOG Resident Activity Tracking <Sarahi Webber MD - Last Filed: 02/02/21 07:19> Resident Involvement: Resident Care Provided Care Provided: OB Delivery
[2021-02-02] MEDS ORDERED: diphenhydrAMINE 50 MG/ML VIAL IV PRN (06:27)
[2021-02-02] MEDS ORDERED: oxyCODONE/ACETAMINOPHEN 5mg/325mg TAB PO PRN (06:27)
[2021-02-02] MEDS ORDERED: MEPERIDINE HCL 50 MG/ML CARP IV PRN (06:27)
[2021-02-02] MEDS ORDERED: ONDANSETRON INJ 2 MG/ML 2 ML VIAL IV PRN (06:27)
[2021-02-02] MEDS ORDERED: KETOROLAC 30 MG/ML VIAL IV PRN (06:27)
[2021-02-02] MEDS ORDERED: PROMETHAZINE HCL 25 MG in SODIUM CHLORIDE 0.9% 50 ML IV PRN (06:27)
[2021-02-02] MEDS ORDERED: diphenhydrAMINE Capsule 25 MG CAP PO PRN (06:27)
--- NOTE | 2021-02-02 06:51 | Medical Student Progress Note ---
Date of Service February 02, 2021 Assessment & Plan (1) Encounter for care and examination after delivery: Plan: Melisa is a 30 year old post op day 1 after c section, overall doing well. * Hgb 13.1 -> 12.3 * remove samson catheter * encourage ambulation * advance diet to solids * hgb q24hr * routine post care Admission and Anticipated Discharge Date Admission Date: January 30, 2021 Subjective Melisa is a 30 year old female who is post op day 1 after c- section for failure of descent at 37 4/7. Her was complicated by gestational hypertension requiring induction. Overall, she is doing well. Her pain is well controlled. She tolerated a clear diet well. She has passed gas, no bowel movement and has a samson catheter. She is breast feeding, which is going well. Some lochia, but improving. The incision is clean and dry with no swelling or warmth. Blood pressure has been 110s/70s. ROS negative for headache, fevers/ chills/ chest pain/ trouble breathing/ breast pain/leg pain/ swelling Physical Exam Constitutional: WD/WN, vitals as above Respiratory: normal respiratory effort, lungs clear to auscultation Cardiovascular: RRR, no murmur, no edema bebo's sign negative bilaterally Skin: no rashes, warm and dry incision dry with no swelling Genitourinary: fundus palpated 2 cm below abdomen, firm Results & Data ([facility]) Vital Signs (Past 12 Hours) Vital Signs Temp Pulse Resp BP Pulse Ox 02/02/21 06:10 16 96 02/02/21 05:50 18 92 02/02/21 04:55 37.1 C 98 H 18 114/73 02/02/21 04:50 18 98 02/02/21 03:10 16 92 02/02/21 02:25 18 94 02/02/21 01:20 16 92 02/02/21 00:20 37.2 C 88 18 117/74 96 02/01/21 23:30 16 94 02/01/21 22:25 18 96 02/01/21 21:45 16 94 02/01/21 20:20 36.9 C 95 H 16 133/78 96 02/01/21 19:20 16 96
[2021-02-02 07:04] LABS: Basophils # (auto) 0.02 K/uL (0-0.2); Basophils % (auto) 0.1 %; Eosinophils # (auto) 0.04 K/uL (0-0.5); Eosinophils % (auto) 0.2 %; Hematocrit (blood only) 35.7 % (37-47); Hemoglobin 12.1 g/dL (12.0-16.0); Immature Granulocytes # (auto) 0.07 K/uL (0.00-0.02); Immature Granulocytes % (auto) 0.3 %; Lymphocytes % (auto) 6.5 %; Mean Corpuscular Hemoglobin 30.3 pg (25-34); Mean Corpuscular Hgb Conc 33.9 g/dL (32-36); Mean Corpuscular Volume 89.3 fL (80-100); Mean Platelet Volume 9.9 fL (7.4-10.4); Monocytes # (auto) 1.48 K/uL (0.11-0.59); Monocytes % (auto) 7.4 %; Neutrophils # (auto) 17.17 K/uL (1.4-6.5); Neutrophils % (auto) 85.5 %; Platelet Count 276 K/uL (130-400); RDW Coefficient of Variation 13.5 % (11.5-14.5); RDW Standard Deviation 44.1 fL (36.4-46.3); White Blood Count 20.08 K/uL (4.8-10.8)
[2021-02-02] MEDS: IBUPROFEN 600 MG TAB PO PRN ×2 (07:32→19:08)
[2021-02-02] MEDS: FERROUS SULFATE 325 MG TAB PO SCH (07:32)
[2021-02-02] MEDS: DOCUSATE SODIUM 100 MG CAP PO SCH ×2 (07:32→21:22)
[2021-02-02] MEDS: PRENATAL VITAMIN 1 TAB PO SCH (07:32)
[2021-02-02] MEDS: SIMETHICONE 80 MG CHEW PO SCH ×5 (07:34→21:21)
[2021-02-02] MEDS ORDERED: bisacodyL 5 MG TABEC PO SCH (20:00)
--- NOTE | 2021-02-03 05:52 | Obstetrical Progress Note ---
Date of Service <Sarahi Webber MD - Last Filed: 02/03/21 07:23> February 03, 2021 Assessment & Plan <Sarahi Webber MD - Last Filed: 02/03/21 07:23> (1) Encounter for care and examination after delivery: 30 yo now POD2 from at 37wk4d for failed vacuum delivery and failure of descent -Continue routine care, potential d/c today per patient preference -Vitals reviewed- HDS, afebrile -Blood type O+, GBS-, Rubella immune -Encourage ambulation, regular diet -Pain control with ibuprofen, oxycodone PRN -Encourage -Hgb 10.7, asymptomatic -F/u in 6 weeks with OB <Amanda Alvarado MD - Last Filed: 02/03/21 07:32> (1) Encounter for care and examination after delivery: Subjective <Sarahi Webber MD - Last Filed: 02/03/21 07:23> Ambulation: limited ambulation Voiding: samson catheter in place Passing Gas:: Yes Diet Tolerance:: regular diet Lochia:: Small Feeding Type:: breast feeding Current Pain Level(1-10): 0 Pt and baby doing well, no acute events or complaints. Has passed BM. Pain well controlled with medication. Review of Systems Denies fevers/chills. Denies dyspnea, cough. Denies chest pain. Denies breast pain or discharge. Denies dysuria. Denies headache. Denies back pain. Physical Exam <Sarahi Webber MD - Last Filed: 02/03/21 07:23> General: Alert, oriented, no acute distress Cardiac: Regular rate and rhythm, normal S1, S2. No murmurs appreciated. Respiratory: Clear to auscultation b/l with good air flow entry, symmetric chest rise and fall. No wheezes or crackles. No increased work of breathing or accessory muscle use Abdomen: Soft, nontender, nondistended. Fundus firm and palpable at 2 cm below umbilicus. Surgical incision clean, dry and intact without erythema, warmth or drainage. Bowel sounds appreciated. No guarding or rebound. Skin: No rashes or lesions Extremities: Warm, dry, well-perfused with capillary refill <2s b/l. No lower extremity edema, erythema or swelling. Negative Tonya's sign b/l. Results & Data ([facility]) <Sarahi Webber MD - Last Filed: 02/03/21 07:23> Vital Signs (Past 12 Hours) Vital Signs Temp Pulse Resp BP Pulse Ox 02/02/21 23:45 36.9 C 86 16 114/78 02/02/21 19:50 37.4 C 88 18 128/77 97 <Amanda Alvarado MD - Last Filed: 02/03/21 07:32> Co-Signing Physician Notes Resident Physician Supervision Note: I interviewed and examined the patient. Discussed with Dr. Webber and agree with findings and plan as documented in the note. Any exceptions or clarifications are listed here: [ ] Documented By: Amanda Alvarado MD, FACOG Resident Activity Tracking <Sarahi Webber MD - Last Filed: 02/03/21 07:23> Resident Involvement: Resident Care Provided Care Provided: OB Delivery
[2021-02-03 06:20] LABS: Hemoglobin 10.7 g/dL (12.0-16.0)
[2021-02-03] MEDS: IBUPROFEN 600 MG TAB PO PRN ×2 (07:55→12:17)
[2021-02-03] MEDS: SIMETHICONE 80 MG CHEW PO SCH ×2 (08:16→12:17)
[2021-02-03] MEDS: PRENATAL VITAMIN 1 TAB PO SCH (08:16)
[2021-02-03] MEDS: FERROUS SULFATE 325 MG TAB PO SCH (08:16)
[2021-02-03] MEDS: DOCUSATE SODIUM 100 MG CAP PO SCH (08:16)
[2021-02-03] MEDS ORDERED: bisacodyL 10 MG SUPP PR PRN (13:01)
--- NOTE | 2021-02-04 11:23 | Discharge Summary (DS) ---
DATE OF ADMISSION: 01/30/2021. DATE OF DISCHARGE: 02/03/2021 ADMISSION DIAGNOSES: 1. Intrauterine at 37 and 2/7th weeks. 2. Gestational hypertension. DISCHARGE DIAGNOSES: 1. Intrauterine at 37 and 2/7th weeks. 2. Gestational hypertension. 3. Failure to descend. 4. Failed vacuum. PROCEDURES: 1. Pitocin induction. 2. Amniotomy. 3. Epidural. 4. Intrauterine pressure catheter. 5. Failed vacuum. 6. Primary low transverse section. HISTORY OF PRESENT ILLNESS: Patient is a 30-year-old G3, P0-0-2-0 at 37 and 2/7th weeks by [facility] of 02/18/2021 consistent with last menstrual period and first trimester ultrasound, who presented to labor and delivery with headache. She was seen for the last week and found to have mildly elevated blood pressures. Labs obtained and were normal. She was seen the following day for blood pressure check and was normal. On the day of admission, she called in to the triage line, noting headache that did not improve with Tylenol and she came in for evaluation. On arrival, she still had noted very slight headache 2/10. She denied vision changes, chest pain, shortness of breath, right upper quadrant or epigastric pain. She noted good movement. She denied contractions, leaking of fluid or vaginal bleeding. Blood pressures were normotensive to mild range; however, her initial blood pressure was severe, but did not persist. Reglan was provided for headache relief, which did not improve it; labs were again obtained and were normal. However, the patient did meet criteria for gestational hypertension with mild range blood pressures greater than 4 hours apart and so it was recommended for induction due to gestational age, which she accepted. Her past history is significant for a 36-week ultrasound showing an estimated weight in the 96th percentile and the AC in greater than 98th percentile. PAST OB/GYNECOLOGIC HISTORY: She has a history of SAB x2. For rest of the patient's detailed history and physical, please see her dictated history and physical. ASSESSMENT: This is a 30-year-old white female G3, P0-0-2-0 at 37 and 2/7th weeks with gestational hypertension, we have decided to proceed with induction of labor. HOSPITAL COURSE: The patient's hospital course was prolonged because of a very slow ability to get her induced. Her induction required Pitocin augmentation, amniotomy, epidural, intrauterine pressure catheter. Finally, on day 2, we were able to get her to complete and complete and +1 station. The patient pushed for a little over an hour, but then presented with maternal exhaustion. She brought the fetus down to +2 or +3 station. I offered an attempt at vacuum- assisted explaining the risks and benefits associated with that and that if we failed with the vacuum that we would proceed with section. They were agreeable. I was able to place the vacuum, but unfortunately she just had no effort behind the push and the vacuum popped off x3, so we proceeded to delivery. The patient underwent a primary low transverse section without difficulty. Uterus, tubes and ovaries were normal bilaterally. The fetus was wedged into the pelvis and LOP position. ESTIMATED BLOOD LOSS: For the procedure was 600 mL. The patient's postoperative course was uncomplicated. She tolerated a regular diet, ambulated without difficulty, voided after the removal of her Stanley catheter and her pain was well controlled on oral pain medications. She was discharged home on postoperative day two with routine discharge instructions and a 6-week followup. Job ID: [id number] [facility]
== END 2021-02-03 15:25 | disposition home or self-care (01) | DRG 788 ==
LOC: OPB 16:36 → 4S1 16:39 → 4S2 02-01 15:45